=== PATIENT | female | born 1970 | race Caucasian/White ===

== ENCOUNTER → 2018-06-03 12:59 | Outpatient (CLI) | payer OTHER, SELFPAY ==
[2018-06-03 17:09] LABS: Thyroid Stimulating Hormone 4.98 uIU/mL (0.47-4.68)
== END ==
DX: E03.9 Hypothyroidism, unspecified (principal)
CPT/HCPCS: 36415; 84439; 84443

== ENCOUNTER → 2018-08-11 11:33 | Outpatient (CLI) | payer OTHER, SELFPAY ==
--- NOTE | 2018-08-11 | DI.MG.S_ITS ---
BILATERAL DIGITAL SCREENING MAMMOGRAM 3D/2D WITH CAD: 08/11/2018 CLINICAL: Routine screening. Comparison is made to exam dated: 05/09/2014 mammogram - [facility] [place]. There are scattered fibroglandular elements in both breasts. Current study was also evaluated with a Computer Aided Detection (CAD) system. There is an oval low density focal asymmetry with an indistinct and circumscribed margin in the right breast at 10 o'clock anterior depth. No other significant masses, calcifications, or other findings are seen in either breast. IMPRESSION: INCOMPLETE: NEEDS ADDITIONAL IMAGING EVALUATION The oval low density focal asymmetry in the right breast is indeterminate. Mediolateral and spot compression views as well as additional views with possible ultrasound are recommended. This exam was interpreted at Station ID: [id number]. NOTE: For mammograms, a report in lay terms will be sent to the patient. Approximately 15% of breast malignancies will not be visualized mammographically. In the management of a palpable breast mass, a negative mammogram must not discourage biopsy of a clinically suspicious lesion. Electronically Signed By: Bassem rajan/susana:08/11/2018 13:39:47 letter sent: Additional Imaging Needed ACR BI-RADS Category 0: Incomplete [id number]
[2018-08-11 13:09] LABS: Thyroid Stimulating Hormone 0.93 uIU/mL (0.47-4.68)
== END ==
DX: Z12.31 Encounter for screening mammogram for malignant neoplasm of breast (principal); E03.9 Hypothyroidism, unspecified
CPT/HCPCS: 36415; 77063; 77067; 84443

== ENCOUNTER → 2018-08-18 08:38 | Outpatient (CLI) | payer OTHER, SELFPAY ==
--- NOTE | 2018-08-18 08:39 | DI.MG.S_ITS ---
UNILATERAL RIGHT DIGITAL DIAGNOSTIC MAMMOGRAM 3D/2D WITH ADDITIONAL VIEWS: 08/18/2018 CLINICAL: Additional evaluation requested from prior study. Comparison is made to exams dated: 08/11/2018 mammogram - [facility] and 05/09/2014 mammogram - [facility] [place]. There are scattered fibroglandular elements in right breast. There is an oval focal asymmetry with a circumscribed margin in the right breast at 10 o'clock anterior depth. This is not significantly changed. No other significant masses or calcifications are seen in the breast. IMPRESSION: INCOMPLETE: NEEDS ADDITIONAL IMAGING EVALUATION The oval focal asymmetry in the right breast is indeterminate. An ultrasound is recommended which is scheduled to immediately follow this exam. This exam was interpreted at Station ID: [id number]. NOTE: For mammograms, a report in lay terms will be sent to the patient. Approximately 15% of breast malignancies will not be visualized mammographically. In the management of a palpable breast mass, a negative mammogram must not discourage biopsy of a clinically suspicious lesion. Electronically Signed By: James Kennedy M.D. aty/:08/18/2018 09:53:39 ACR BI-RADS Category 0: Incomplete [id number]
--- NOTE | 2018-08-18 08:39 | DI.US.S_ITS ---
ULTRASOUND OF RIGHT BREAST: 08/18/2018 CLINICAL: Additional evaluation requested from prior study. Comparison is made to exams dated: 08/18/2018 mammogram, 08/11/2018 mammogram - [facility], and 05/09/2014 mammogram - [facility] [place]. Color flow and real-time ultrasound of the right breast were performed. Jenkins scale images of the real-time examination were reviewed. There is a benign 0.6 cm wider than tall oval simple cyst in the right breast at 9 o'clock anterior depth 4 cm from the nipple. This oval simple cyst is anechoic. This correlates with mammography findings. No abnormalities were seen sonographically in the right breast. IMPRESSION: BENIGN There is no sonographic evidence of malignancy. The 0.6 cm wider than tall oval cyst in the right breast is consistent with a simple cyst and is benign. A 1 year screening mammogram is recommended. This exam was interpreted at Station ID: [id number]. Electronically Signed By: James jimenez/:08/18/2018 09:56:32 letter sent: Normal Exam Ultrasound BI-RADS: 2 Benign
== END ==
LOC: US 08:38
DX: R92.8 Other abnormal and inconclusive findings on diagnostic imaging of breast (principal); N60.01 Solitary cyst of right breast
CPT/HCPCS: 76642; 77065; G0279

== ENCOUNTER → 2023-02-27 11:42 | Outpatient (CLI) | payer OTHER, SELFPAY ==
--- NOTE | 2023-02-27 | DI.MRI.S_ITS ---
PROCEDURE: MR PELVIS WO/W CON INDICATIONS: Malignant neoplasm of endocervix TECHNIQUE: Coronal HASTE, sagittal breath-hold T2 FSE; axial T1 FSE with and without fat saturation through the pelvis. Optional long- and short-axis uterine nonbreath-hold T2 FSE through the uterus. Sagittal or axial dynamic VIBE during administration of contrast. Post-contrast axial or coronal VIBE/2-D FLASH with fat saturation from the iliac crests to the symphysis. Optional diffusion weighted imaging and ADC may be performed. COMPARISON: None. FINDINGS: Uterus: Subtle intermediate T2 signal present within the cervix likely corresponds to the provided history of cervical neoplasm. A discrete mass is difficult to measure but may measure approximately 2.0 cm for example oblique coronal T2 images series 5, image 14. Suspected tumor appears to involve the parametrium, on this image and on oblique axial images for example series 9 images 17 through 19. Adnexa: Both ovaries appear small, may be related to senescent change or post treatment change in the appropriate clinical setting. Urinary system: Bladder wall is normal in thickness. Distal ureters are non distended. Nodes and vessels: Pelvic adenopathy is present, most pronounced at the external iliac chains bilaterally. Suspicious left common iliac lymph nodes are also present. Writing Center Director lymph nodes include: -left external iliac chain: 3.4 x 2.0 cm (23/64). -right external iliac chain: 1.9 x 1.3 cm (23/52). Bowel and peritoneum: No pathologic free pelvic fluid. Inferior colon and small bowel loops are normal in caliber. Bones: Marrow demonstrates unremarkable overall signal. IMPRESSION: 1. Provided history of cervical neoplasm is difficult to visualize/measure, unclear if related to small tumor size, technical factors, or if there has been prior treatment. Suspected tumor measures approximately 2 cm, with appearance suspicious for parametrial invasion. 2. Pelvic lymphadenopathy present suspicious for metastatic disease. Dictated by: Gigi Church M.D. on 02/27/2023 at 15:19 Approved by: Gigi Church M.D. on 02/27/2023 at 15:41
== END ==
PROVIDERS: PCP Family Medicine; Referring Provider Radiology Radiation Oncology; Visit Provider Radiology Radiation Oncology
DX: C53.0 Malignant neoplasm of endocervix (principal); R59.0 Localized enlarged lymph nodes
CPT/HCPCS: 72197